=== PATIENT | male | born 1970 ===

== ENCOUNTER 2017-04-01 14:28 | Emergency (ER) | payer MEDICAID, OTHER ==
[2017-04-01 14:57] VITALS: TEMP 98.8
[2017-04-01 15:55] LABS: BASO # 0.1 K/uL (0.0-0.2); BASO % 1.1 % (0.0-2.0); EOS # 0.2 K/uL (0.0-0.7); EOS % 2.8 % (0.0-4.0); HEMOGLOBIN 15.8 g/dL (12.0-18.0); LYMPH # 1.4 K/uL (1.0-4.3); LYMPH % 16.7 % (20.0-40.0); MEAN CELL VOLUME 91.8 fL (80.0-94.0); MEAN CORPUSCULAR HGB CONC 34.9 g/dL (33.0-37.0); MEAN PLATELET VOLUME 8.6 fL (7.2-11.7); MONO # 0.7 K/uL (0.0-0.8); MONO % 8.1 % (0.0-10.0); NEUT # 6.1 K/uL (1.8-7.0); NEUT % 71.3 % (50.0-75.0); NRBC % 0.4 % (0.0-2.0); RBC 4.95 Mil/uL (4.40-5.90); RED CELL DISTRIBUTION WIDTH 13.2 % (11.5-14.5); WHITE BLOOD COUNT 8.6 K/uL (4.8-10.8)
[2017-04-01 16:08] LABS: BLOOD UREA NITROGEN 12 mg/dL (9-20); CALCIUM 9.7 mg/dl (8.6-10.4); GFR AFRICAN-AMERICAN > 60; GFR NON-AFRICAN AMERICAN > 60
[2017-04-01 16:46] VITALS: BP 174/97; PULSE 76; RESP 18; O2SAT 99
--- NOTE | 2017-04-01 19:48 | C.PDOC ---
History Of Present Illness 46-year-old male, presents to the emergency department with complaints of pain to left lateral lower extremity x4 days. Patient states the leg has been swollen. Denies numbness/weakness, shortness of breath, chest pain, recent travel or any other associated symptoms. No other complaints at this time. Time Seen by Provider: 04/01/17 15:10 Chief Complaint (Nursing): Lower Extremity Problem/Injury History Per: Patient History/Exam Limitations: no limitations Past Medical History Reviewed: Historical Data, Nursing Documentation, Vital Signs Vital Signs: Last Vital Signs Temp 98.8 F 04/01/17 14:53 Pulse 76 04/01/17 16:46 Resp 18 04/01/17 16:46 BP 174/97 H 04/01/17 16:46 Pulse Ox 99 04/01/17 21:47 - Medical History PMH: HTN Denies: Chronic Kidney Disease Family History: States: No Known Family Hx - Social History Hx Alcohol Use: Yes Hx Substance Use: No - Immunization History Hx Tetanus Toxoid Vaccination: No Hx Influenza Vaccination: No Hx Pneumococcal Vaccination: No Review Of Systems Constitutional: Negative for: Fever Cardiovascular: Negative for: Chest Pain, Palpitations Respiratory: Negative for: Shortness of Breath Physical Exam - Physical Exam Appears: Non-toxic, No Acute Distress Skin: Normal Color, Warm, Dry, No Rash Head: Atraumatic, Normacephalic Eye(s): bilateral: Normal Inspection, PERRL, EOMI Oral Mucosa: Moist Neck: Normal ROM, Supple Chest: Symmetrical, No Tenderness Cardiovascular: Rhythm Regular, No Friction Rub, No Murmur Respiratory: Normal Breath Sounds, No Accessory Muscle Use, No Wheezing Gastrointestinal/Abdominal: Soft, No Tenderness Extremity: Calf Tenderness, Capillary Refill (<2 seconds), No Deformity, Swelling, Other (Left lower extremity: There is (+)swelling and torturous veins. (+)swelling to L foot. ) Pulses: Left Dorsalis Pedis: Normal, Right Dorsalis Pedis: Normal Neurological/Psych: Oriented x3, Normal Motor, Normal Sensation Gait: Steady ED Course And Treatment - Laboratory Results Result Diagrams: 04/01/17 15:44 04/01/17 15:44 O2 Sat by Pulse Oximetry: 99 (RA) Pulse Ox Interpretation: Normal Progress Note: Bloodwork ordered and reviewed. Patients D-DIMER is negative. He will be discharged for outpatient f/u with PMD. the leg has large varicose veins which could be causing pain. Medical Decision Making Medical Decision Making: On re-exam, the patient reports improvement of symptoms. Lungs are CTA, heart is RRR, Ambulatory in the ED with steady gait. Disposition Counseled Patient/Family Regarding: Studies Performed, Diagnosis, Need For Followup (For his high BP) - Disposition Referrals: [facility] [Outside] Disposition: HOME/ ROUTINE Disposition Time: 16:30 Condition: STABLE Additional Instructions: Wear compression stockings to help with the veins. Return if worsened. Prescriptions: Compression Socks, Medium [Futuro Restoring] 1 each MC DAILY #2 each Instructions: Varicose Veins (DC) Forms: [facility] (Mal[place]ian) - POA Present On Arrival: None - Clinical Impression Clinical Impression: Varicose veins of both lower extremities - Scribe Statement The provider has reviewed the documentation as recorded by the Scribe (Wili Monique) All medical record entries made by the Scribe were at my direction and personally dictated by me. I have reviewed the chart and agree that the record accurately reflects my personal performance of the history, physical exam, medical decision making, and the department course for this patient. I have also personally directed, reviewed, and agree with the discharge instructions and disposition.
== END 2017-04-01 16:46 | disposition home or self-care (01) ==
LOC: MERGE 14:28 → C.ER 14:28
DX: I83.93 Asymptomatic varicose veins of bilateral lower extremities (principal); I10 Essential (primary) hypertension